=== PATIENT | male | born 1945 | race African-American/Black ===

== ENCOUNTER 2021-02-02 03:09 | Emergency (ER) | payer MEDICARE, MEDICAID ==
[~2021-02-02] VITALS: Ht 177.8 cm; Wt 78.0 kg
[2021-02-02] MEDS ORDERED: IPRATROPIUM BROMIDE (0.02%) 0.5MG/2.5ML NEB HHN STA (03:31)
[2021-02-02] MEDS ORDERED: METHYLPREDNISOLONE SOD SUCC 125 MG/2 ML VIAL IV STA (03:31)
[2021-02-02] MEDS ORDERED: MAGNESIUM 2 G PREMIX 50 ML IV ONE (03:45)
[2021-02-02 03:50] LABS: EOSINOPHILS % 1.9 % (0.0-5.0); HEMATOCRIT. 38.9 % (42.0-52.0); HEMOGLOBIN. 12.8 g/dL (14.0-18.0); LYMPHOCYTES % 33.3 % (20.0-50.0); MEAN CORPUSCULAR HEMOGLOBIN 25.9 pg (28.0-32.0); MEAN CORPUSCULAR VOLUME 78.9 fL (80.0-94.0); MEAN PLATELET VOLUME 6.8 fl (7.4-10.4); MONOCYTES % 12.1 % (2.0-8.0); NEUTROPHILS % 51.7 % (40.0-76.0); PLATELET 410 x1000/uL (130-400); RED BLOOD CELL COUNT 4.94 mill/uL (4.7-6.1); RED CELL DISTRIBUTION WIDTH 17.7 % (11.6-14.6)
[2021-02-02] MEDS ORDERED: ALBUTEROL (0.083%) 2.5MG/3ML NEB HHN SCH (04:00)
[2021-02-02 04:36] LABS: CHLORIDE 104 mEq/L (98-107)
[2021-02-02] MEDS ORDERED: ALBU6.7H9 INH (05:54)
[2021-02-02] MEDS ORDERED: P20 MT (05:54)
[2021-02-02 07:33] VITALS: BP 118/75
== END 2021-02-02 07:35 | disposition home or self-care (01) ==
LOC: ER 03:09 → CANBEDREQ 11:48
DX: J44.1 Chronic obstructive pulmonary disease with (acute) exacerbation (principal); J96.01 Acute respiratory failure with hypoxia; I10 Essential (primary) hypertension; Z20.822 Contact with and (suspected) exposure to COVID-19
CPT/HCPCS: 36415; 71045; 80053; 83605; 83880; 84484; 85025; 85379; 87040; 87426; 94640; 96365; 96375; 99291; J2930; J3475